=== PATIENT | female | born 1990 | race Caucasian/White ===

== ENCOUNTER 2017-04-02 16:25 | Emergency (ER) | payer MEDICAID ==
[2017-04-02 16:34] VITALS: BP 125/80; PULSE 65; RESP 18; TEMP 98.1; O2SAT 100
--- NOTE | 2017-04-02 17:17 | ED PDOC ---
HPI: Female Pain Time Seen by Provider: 04/02/17 16:53 Chief Complaint (Nursing): Female Genitourinary Chief Complaint (Provider): Vaginal bleeding History Per: Patient Additional Complaint(s): Patient is a 26 yo female, no PMH, presents to ED currently ~ 5 weeks , LMP was 02/26, with complaints of spotting that developed around 3 am. Patient denies pain. Past Medical History Reviewed: Nursing Documentation, Vital Signs Vital Signs: Last Vital Signs Temp 98.1 F 04/02/17 16:31 Pulse 65 04/02/17 16:31 Resp 18 04/02/17 16:31 BP 125/80 04/02/17 16:31 Pulse Ox 100 04/02/17 16:31 - Medical History PMH: No Chronic Diseases - Surgical History Surgical History: No Surg Hx - Family History Family History: States: No Known Family Hx - Living Arrangements Living Arrangements: With Family - Social History Current smoker - smoking cessation education provided: No Alcohol: None Drugs: Denies - Allergies Allergies/Adverse Reactions: Allergies Allergy/AdvReac Type Severity Reaction Status Date / Time No Known Allergies Allergy Verified 04/02/17 17:16 Review of Systems ROS Statement: Except As Marked, All Systems Reviewed And Found Negative Genitourinary Female: Positive for: Vaginal Bleeding Physical Exam - Reviewed Nursing Documentation Reviewed: Yes Vital Signs Reviewed: Yes - Physical Exam Appears: Positive for: Well, Non-toxic, No Acute Distress Head Exam: Positive for: ATRAUMATIC, NORMAL INSPECTION, NORMOCEPHALIC Skin: Positive for: Normal Color, Warm, DRY Eye Exam: Positive for: EOMI, Normal appearance, PERRL ENT: Positive for: Normal ENT Inspection Neck: Positive for: Normal, Painless ROM Cardiovascular/Chest: Positive for: Regular Rate, Rhythm Respiratory: Positive for: CNT, Normal Breath Sounds Gastrointestinal/Abdominal: Positive for: Normal Exam, Bowel Sounds, Soft Back: Positive for: Normal Inspection Extremity: Positive for: Normal ROM Neurologic/Psych: Positive for: Alert, Oriented - Laboratory Results Result Diagrams: 04/02/17 17:55 - ECG O2 Sat by Pulse Oximetry: 100 Medical Decision Making Medical Decision Making: Diagnostics ordered CBC resulted WNL Beta 297 Blood type O+ US pending case endorsed to AMANDA Cheney at 20:00 pending diagnostic review and re-eval Disposition - Clinical Impression Clinical Impression: Threatened - Patient ED Disposition Is Patient to be Admitted: No - Disposition Disposition: Transfer of Care ([facility] [place]) Disposition Time: 19:44 Condition: STABLE - POA Present On Arrival: None
[2017-04-02 18:01] LABS: BASO # 0.1 K/uL (0.0-0.2); BASO % 0.7 % (0.0-2.0); EOS # 0.2 K/uL (0.0-0.7); EOS % 2.6 % (0.0-4.0); HEMOGLOBIN 12.6 g/dL (12.0-16.0); LYMPH # 2.5 K/uL (1.0-4.3); LYMPH % 28.8 % (20.0-40.0); MEAN CELL VOLUME 94.2 fl (81.0-99.0); MEAN CORPUSCULAR HEMOGLOBIN 30.8 pg (27.0-31.0); MEAN CORPUSCULAR HGB CONC 32.6 g/dL (33.0-37.0); MEAN PLATELET VOLUME 8.5 fl (7.2-11.7); MONO # 0.7 K/uL (0.0-0.8); MONO % 8.5 % (0.0-10.0); NEUT # 5.1 K/uL (1.8-7.0); NEUT % 59.4 % (50.0-75.0); RBC 4.1 Mil/uL (3.80-5.20); WHITE BLOOD COUNT 8.5 K/uL (4.8-10.8)
[2017-04-02 18:51] LABS: SQUAMOUS EPITHIAL 11 /hpf (0-5); URINE BILIRUBIN NEGATIVE (NEGATIVE); URINE BLOOD MODERATE (NEGATIVE); URINE CLARITY SLIGHTY-CLOUDY (Clear); URINE COLOR YELLOW (YELLOW); URINE GLUCOSE (UA) NEG (Normal); URINE LEUKOCYTE ESTERASE NEG Leu/uL (Negative); URINE NITRATE NEGATIVE (NEGATIVE); URINE PROTEIN 30 mg/dL (NEGATIVE); URINE UROBILINOGEN 0.2-1.0 mg/dL (0.2-1.0)
--- NOTE | 2017-04-02 20:21 | ED PDOC ---
- Laboratory Results Result Diagrams: 04/02/17 17:55 Urine POC: Positive - ECG O2 Sat by Pulse Oximetry: 100 Pulse Ox Interpretation: Normal - Progress ED Course And Treament: Case was signed out remote mortgage underwriter from [employer] Worley pending US. Medical Decision Making Medical Decision Making: OB US: FINDINGS: Uterus/cervix: No intrauterine observed Normal endometrial stripe thickness measuring 4 mm. No myometrial mass. Right ovary: Unremarkable. No mass. Normal blood flow. Left ovary: Unremarkable. No mass. Normal blood flow. Free fluid: No free fluid. IMPRESSION: No intrauterine observed at this time Patient aware of above findings. She was instructed to follow up with her OB or with clinic. Disposition - Clinical Impression Clinical Impression: Early stage of - POA Present On Arrival: None - Disposition [facility]errals[facility] [[facility]] Disposition: Routine/Home Disposition Time: 21:22 Condition: STABLE Additional Instructions: Follow up in 2-3 days with women's clinic or your examination supervisor. Instructions: (ED) Results - Lab Results Lab Results: 04/02/17 04/02/17 04/02/17 18:00 17:55 17:55 WBC 8.5 RBC 4.10 Hgb 12.6 Hct 38.6 MCV 94.2 MCH 30.8 MCHC 32.6 L RDW 13.0 Plt Count 296 MPV 8.5 Neut % (Auto) 59.4 Lymph % (Auto) 28.8 Brantley % (Auto) 8.5 Eos % (Auto) 2.6 Baso % (Auto) 0.7 Neut # 5.1 Lymph # 2.5 Brantley # 0.7 Eos # 0.2 Baso # 0.1 Beta HCG, Quant Urine Color Yellow Urine Clarity Slighty-cloudy Urine pH 5.0 Ur Specific [place] 1.032 H Urine Protein 30 Urine Glucose (UA) Neg Urine Ketones Negative Urine Blood Moderate Urine Nitrate Negative Urine Bilirubin Negative Urine Urobilinogen 0.2-1.0 Ur Leukocyte Esterase Neg Urine RBC (Auto) 4 H Urine Microscopic WBC 4 Ur Squamous Epith Cells 11 H Blood Type O POSITIVE Antibody Screen Negative BBK History Checked Patient has bt 04/02/17 17:55 WBC RBC Hgb Hct MCV MCH MCHC RDW Plt Count MPV Neut % (Auto) Lymph % (Auto) Brantley % (Auto) Eos % (Auto) Baso % (Auto) Neut # Lymph # [place] # Eos # Baso # Beta HCG, Quant 297.12 Urine Color Urine Clarity Urine pH Ur Specific [place] Urine Protein Urine Glucose (UA) Urine Ketones Urine Blood Urine Nitrate Urine Bilirubin Urine Urobilinogen Ur Leukocyte Esterase Urine RBC (Auto) Urine Microscopic WBC Ur Squamous Epith Cells Blood Type Antibody Screen BBK History Checked
--- NOTE | 2017-04-03 12:41 | US ---
Indication: Bleeding Comparison: Pelvic ultrasound performed 08/01/11 Technique: Transvaginal pelvic ultrasound Findings: The uterus measures approximately 8.8 x 3.6 x 4.8 cm. Endometrium measures approximately 4 mm in diameter. No evidence of intrauterine gestational sac. Cervical length measures approximately 5 cm. The right ovary measures 3.1 x 1.9 x 1.8 cm. The left ovary measures 2.6 x 2.0 x 2.7 cm. Blood flow was demonstrated to both ovaries. Impression: No evidence of intrauterine gestational sac. If indeed the patient is based on serum beta HCG values, the sonographic findings represent either: Very early IUP; embryonic demise; ectopic gestation. Follow-up with serial quantitative serum beta HCG measurements and post OBGYN follow-up as clinically indicated, since ectopic gestation cannot be excluded based only on sonographic findings. Preliminary impression was provided by virtual radiologic.
== END 2017-04-02 21:30 | disposition home or self-care (01) ==
LOC: H.ER 16:25
DX: O20.0 Threatened abortion (principal)

== ENCOUNTER 2017-10-20 08:27 | Emergency (ER) | payer MEDICAID ==
--- NOTE | 2017-10-27 12:39 | OBHP ---
Datetime: 10/20/2017 08:45 IP Adm Impression: , intrauterine IP Admit Plan: Discharge home Admit Comment, IP Provider: 26 yo at 28.1 based on US on 06/06/2017 presents with illness. 2 days ago she had symptoms of weakness, WILLIAMSON (pressure at frontal temporal, no changes in vision) with nausea. No vomiting. Daughter had flu 1 week ago. Positive: movement Denies: VB, LOF, CTX, CP/SOB/V/dysuria PNC: Dr. Judd Gyne: denies history of sti; pap neg med hx: none famhx: none surg: denies smoking, alcohol, illicit drugs meds: pnv NKDA 26 YO IUP 28.1 -signs/symptoms of viral illness -encouraged patient to have rapid flu test done for consideration of tamiflu -f/u ultrasound is on friday -f/u with dr. Judd 11/02/2017 -ER precautions given case dw Dr. Sheree Castorena MD PGY1 Addendum by Dr. Bentley: I have evaluated the patient independently and I agree with the above. THe patient has signs/symptoms of cold, no OB complaints. @ 28.1 wks. no abnormal vital signs, pa tient tolerating PO diet, denies fever, diarrhea. Will discharge pt home, labor precautions given, F/ U in clinic Pelvic Type - PN: Adequate Extremities - PN: Normal Abdomen - PN: Normal Back - PN: Normal Breast - PN: Not Done Lungs - PN: Normal Heart - PN: Normal Thyroid - PN: Not Done Neurologic - PN: Normal HEENT - PN: Normal General - PN: Normal FHR - Baseline A Provider: 150 EGA AdmitDate IP: 28.1 Vital Signs Provider: Reviewed; Within Normal Limits IP Chief Complaint: Maternal discomfort NICHD Variability Prov Fetus A: Moderate 6-25bpm NICHD Accel Fetus A IP Provider: 15X15 FHR Category Provider Fetus A: Category I NICHD Decel Fetus A IP Provider: None Genitourinary Exam: Normal DTRs - PN: Not Done
[2017-10-27 16:38] VITALS: BP 116/67; PULSE 88; TEMP 98.6; O2SAT 98
== END 2017-10-20 09:15 | disposition home or self-care (01) ==
LOC: H.EROB2 08:27
DX: O26.93 Pregnancy related conditions, unspecified, third trimester (principal); B34.9 Viral infection, unspecified; Z3A.28 28 weeks gestation of pregnancy

== ENCOUNTER 2018-01-09 23:56 | Emergency (ER) | payer MEDICAID ==
[2018-01-10 05:33] VITALS: BP 115/66; PULSE 72
== END 2018-01-10 01:15 | disposition home or self-care (01) ==
LOC: H.EROB2 23:56
DX: O47.1 False labor at or after 37 completed weeks of gestation (principal); O26.93 Pregnancy related conditions, unspecified, third trimester; R10.2 Pelvic and perineal pain; Z3A.39 39 weeks gestation of pregnancy

== ENCOUNTER 2018-01-10 11:35 | Inpatient (IN) | payer MEDICAID ==
[2018-01-10 12:36] VITALS: BMI 27.6
[2018-01-10] MEDS ORDERED: Penicillin G Potassium 5 MU in Sodium Chloride 0.9% 50 ML IVPB ONE (12:39)
[2018-01-10] MEDS ORDERED: Oxytocin 30 units/LR 500ML 30 U/500 ML BAG IV SCH (12:45)
[2018-01-10] MEDS ORDERED: Lactated Ringer's 1,000 ML IV SCH (12:45)
[2018-01-10 13:04] LABS: BASO # 0.1 K/uL (0.0-0.2); BASO % 0.4 % (0.0-2.0); EOS # 0.1 K/uL (0.0-0.7); EOS % 1.1 % (0.0-4.0); LYMPH % 17.2 % (20.0-40.0); MEAN CELL VOLUME 94.2 fl (81.0-99.0); MEAN CORPUSCULAR HGB CONC 33.9 g/dL (33.0-37.0); MEAN PLATELET VOLUME 9.7 fl (7.2-11.7); MONO # 0.7 K/uL (0.0-0.8); MONO % 6.3 % (0.0-10.0); NEUT # 8.7 K/uL (1.8-7.0); NRBC % 0.1 % (0.0-0.0); RBC 3.74 Mil/uL (3.80-5.20); RED CELL DISTRIBUTION WIDTH 13.2 % (11.5-14.5); WHITE BLOOD COUNT 11.6 K/uL (4.8-10.8)
[2018-01-10] MEDS ORDERED: Penicillin G 5 Million Unit Vial IVPB ONE (13:16)
[2018-01-10] MEDS: Lactated Ringer's 1,000 ML IV SCH ×2 (13:20→13:24)
--- NOTE | 2018-01-10 13:51 | OBHP ---
Datetime: 01/10/2018 12:51 IP Adm Impression: Term, intrauterine IP Admit Plan: Admit to unit Admit Comment, IP Provider: This is 27 YO @39.6wks IUP presents to [facility] for ctx. Pt states t hat her ctx started yesterday and since onset intensity getting stronger and stronger. Endorsing good FM, no VB, no LOF. MD: [facility] ObHx: 3 full term NVD, 2 SAB last 2016 @ 7 weeks GYNHx: hx of STI in past PMH: denies SurgH: denies FH: HTN in mother, throat CA in father Meds: PNV and iron Allergies: NKDA PE GEN: NAD Cardio: S1S2 no additional heart sounds Resp: clear breath sounds b/l Abdomen: Gravid, NT, BS+ Neuro: AAO x 3 Ext: no edema noted, NT FM: 130 catagory I Cervx: /-2 A/P: 27 YO @39.6wks IUP is evaluated for labor. GBS pos, HIV neg, RPR neg. - Admit to L_D - observe and reevaluate - GBS+, Penicillin - Follow up labs - FHT/NST/VS - Reevaluate Case discussed with Dr. Tam --- Malorie Nelson, PGY-1 OB Hospitalist Addendum: Pt seen by me. Agree w/ above. 27 yo at 39+6 wks in labor. VE done by R.N. Pt admitted to L_D. FHT reasuring. GBS positive. Penicillin for GBS prohylaxis. Pt d eires an epidural. (ES) Pelvic Type - PN: Adequate Extremities - PN: Normal Abdomen - PN: Normal Back - PN: Normal Lungs - PN: Normal Heart - PN: Normal Thyroid - PN: Normal Neurologic - PN: Normal HEENT - PN: Normal General - PN: Normal FHR - Baseline A Provider: 130 EGA AdmitDate IP: 39.6 Vital Signs Provider: Reviewed; Within Normal Limits IP Chief Complaint: Uterine contractions; Maternal discomfort; evaluation NICHD Variability Prov Fetus A: Moderate 6-25bpm NICHD Accel Fetus A IP Provider: 15X15 FHR Category Provider Fetus A: Category I NICHD Decel Fetus A IP Provider: None Dilatation, Provider: 5 Effacement, Provider: 70 Station, Provider: -2 Datetime: 01/10/2018 12:46 Comments, ACOG Physical Exam: GBS + HIV/RPR negative Genitourinary Exam: Normal Datetime: 01/10/2018 00:44 Breast - PN: Not Done Membranes, Provider: Intact DTRs - PN: Not Done
[2018-01-10] MEDS ORDERED: Oxycodone/Acetaminophen 5/325 mg Tab PO PRN ×4 (17:25→20:39)
--- NOTE | 2018-01-10 17:40 | OBDS ---
DELIVERY PERSONNEL Delivery Doctor: Fox Tam MD Glost Tile Shader: Rebecca Staton RN MATERNAL INFORMATION Delivery Anesthesia: None Medications in Delivery: pitocin Estimated Blood Loss (ml): 100 Placenta Cultured: No Maternal Complications: None RN Comments: Live boy @1702. Infant care given. Skin 2skin done at delivery. Placenta delivered bree arently intact. Iv with pitocin infusing well. Extra digit noted on right hand and seen by Dr Tam. Pt tolerated procedure well. Provider Comments: Pt progressed to complete and pushed to deliver a viable male through kaden r fluid over intact perineum at 17:02pm. Weight 3215gm, 7#1.4/ 9/9 . Right Anterior shoulder wa s delivered first in a controlled manner after head followed by posterior arm and body. was bu lb suctioned nasopharygeally and started crying spontaneously. Baby was placed on mother's abdomen fo r Skin to skin contact. Umbilical cord was doubly clamped cut by father as instructed. Cord blod was collected. Placenta was delivered spontaneously intact w/ a 3vc at 5:12 pm. No tears noted. Rectu m intact. Pt and baby tolerated the procedure well. EBL 100cc. Patient and baby remained stable in the delivery room OB Attending: Dr. Tam --- Malorie Nelson, PGY-1 OB Hospitalist Addendum: I was present for this delivery. (ES) LABOR SUMMARY EDC: 01/11/2018 00:00 No. Babies in Womb: 1 Attempted: No LABOR INFORMATION Reason for Induction: Not Applicable Onset of Labor: 01/10/2018 06:30 Group B Beta Strep: Positive Steroids Given: None Reason Steroids Not Administered: Not Applicable MEMBRANES Membranes Rupture Method: Artificial Rupture of Membranes: 01/10/2018 15:57 Amniotic Fluid Color: Clear Amniotic Fluid Amount: Small Amniotic Fluid Odor: Normal VAGINAL DELIVERY Episiotomy: None Laceration Extension: N/A Laceration Type: None INFANT INFORMATION BABY A Gestational Age at Delivery: 39+6 IDENTIFICATION/MEDS BABY A ID Band Number: [id number] ID Band Location: Left Leg; Left Arm
--- NOTE | 2018-01-11 08:52 | OBPPN ---
Datetime: 01/11/2018 08:21 PP Pain Prov: Within normal limits PP Nausea Prov: Denies PP Flatus Prov: Yes PP BM Prov: Yes PP Heart Prov: Normal PP Lungs Prov: Normal PP Abdomen/Uterus Prov: Normal PP Lochia Prov: Normal PP CVA Tenderness Prov: Normal PP Extremities Prov: Normal PP Impression Prov: Normal progression PP Plan Prov: Continue present management PP Progress Note Prov: PPD 1 27 yo now on PPD 1 seen and examined at bedside this morning. No overnight events. Reports pain is controlled with pain medications. Pt reports +flatus/+BM. Voiding freely w/o difficulty. Am bulating well w/o dizziness. Lochia is similar to menses volume. Pt is formula feeding the baby. Den ies nausea, vomiting, fever, chills, chest pain or calf pain. Physical Exam: General: A_O, resting comfortably in bed, NAD HEENT: oral mucosa moist. Lungs: CTA B/L, no wheezing, rhonchi or rales CVS: RRR, S1, S2 ABD: ND, +BS, firm fundus @ umbilical level. Soft, appropriate TTP. EXT: no edema, negative Korin's sign, Neuro/psych: AAOX3. Assessment: 27 yo now doing well on PPD 1 Plan: OOB w/ caution Regular diet Ibuprofen and percocet for pain management Senokot S for constipation consults for Encourage and ambulation Anticipate discharge tomorrow Case d/w on-call OB hospitalist Sultan Rader, pgy-1 The patient was seen with the resident I agree with the note Vital Signs Provider PP: Reviewed
[2018-01-11 09:28] LABS: BASO # 0.1 K/uL (0.0-0.2); BASO % 0.4 % (0.0-2.0); EOS # 0.2 K/uL (0.0-0.7); EOS % 1.4 % (0.0-4.0); LYMPH # 2.2 K/uL (1.0-4.3); LYMPH % 15.5 % (20.0-40.0); MEAN CELL VOLUME 95.6 fl (81.0-99.0); MEAN CORPUSCULAR HEMOGLOBIN 32.1 pg (27.0-31.0); MEAN CORPUSCULAR HGB CONC 33.6 g/dL (33.0-37.0); MEAN PLATELET VOLUME 9.7 fl (7.2-11.7); MONO # 0.9 K/uL (0.0-0.8); MONO % 6.3 % (0.0-10.0); NEUT # 10.8 K/uL (1.8-7.0); NEUT % 76.4 % (50.0-75.0); RBC 3.42 Mil/uL (3.80-5.20); RED CELL DISTRIBUTION WIDTH 13.1 % (11.5-14.5); WHITE BLOOD COUNT 14.2 K/uL (4.8-10.8)
[2018-01-11] MEDS ORDERED: Docusate-Senna 50 mg-8.6 mg Tab PO SCH (22:00)
--- NOTE | 2018-01-12 10:16 | OBPPN ---
Datetime: 01/12/2018 06:03 PP Pain Prov: Within normal limits PP Nausea Prov: Denies PP Flatus Prov: Yes PP BM Prov: Yes PP Heart Prov: Normal PP Lungs Prov: Normal PP Abdomen/Uterus Prov: Normal PP Lochia Prov: Normal PP CVA Tenderness Prov: Normal PP Extremities Prov: Normal PP Impression Prov: Normal progression PP Plan Prov: Continue present management; Discharge PP Progress Note Prov: S: 27 YO , PPD2, s/p NVD. Pt is seen and examined by bedside this AM. No acute overnight events. Pt is endorsing abdominal pain is well controlled. Ambulating, Bleeding has i mproved since delivery. Tolerating PO diet. + BM. Denies chest pain, dyspnea, n/v, fever/chills, diar karina, nausea/vomiting, and calf pain. O: VS: wnl, afebrile GEN: Awake, alert and baby girl by bedside. Sleepy HEENT: EOMI, moist mucosa. LUNGS: CTA B/L, no wheezing, rhonci, or rales CVS: RRR, S1, S2 no murmurs ABD: ND, +BS, soft abdomen, firm fundus, below umbilicus. EXT: No edema, neg calf tenderness NEURO/PSYCHI: AAOx3, no grossly focal deficit, preserved affect and mood. Assessment/Plan: : 27 YO , PPD2, s/p NVD, gave to a baby boy. Pt remains afebrile, florence ating pain with medication, good PO intake and urinating without any difficulties. Doing well on PPD2 . -C/w regular diet as tolerated. -OOB with caution SCDs for DVT prophylaxis -Ibuprofen 600 mg/Percocet for pain prn -C/w Colace 100mg PO BID PRN -Encourage and early ambulation. Malorie Nelson, PGY-[address] Bentley: Patient evaluated independently and I agree with the above IP PP Procedures: None Vital Signs Provider PP: Reviewed; Within Normal Limits
--- NOTE | 2018-01-12 10:16 | OBDCSUM ---
Datetime: 01/12/2018 06:04 Discharged to, Provider: Home Follow up at, Provider: [facility] Disch Instr Activity: Normal activity Disch Instr Diet: Regular Discharge Instructions, Provider: Routine instructions given Discharge Diagnosis, Provider: Term Delivered Discharge Time: 01/12/2018 06:30 Follow up in weeks, Provider: As instructed Disch Referrals: None Contraception discussed, Prov: Yes Discharge Comment, Provider: 27 YO , PPD2, s/p NVD on 01/10/18, gave to a baby boy @39.6 wk s IUP . of 9/9 and weight of 3215g. No complications during the post- period. Pt is florence ating PO diet, pain is well controlled, and ambulating without difficulties, + BM. PPD2. Discharge Instructions: 1.Encourage and ambulation 2.PNV 1 tab po daily 3.Ibuprofen for mild-mod pain and colace for constipation. 4.ER precautions: If excessive bleeding or fever without relief from medication, go to ED 5.F/U PP visit in 4-6 weeks and follow up in 2-3 days for baby. Malorie Nelson, PGY I
[2018-01-12 19:15] VITALS: BP 119/66; PULSE 62; RESP 20; TEMP 98.2; O2SAT 100
== END 2018-01-12 14:05 | disposition home or self-care (01) | DRG 373 ==
LOC: H.EROB2 11:35 → H.L&D 12:36 → H.OB/GYN 20:20
PROVIDERS: ADMIT Obstetrics & Gynecology; ATTEND Obstetrics & Gynecology
PROC: 10E0XZZ Delivery of Products of Conception, External Approach (ICD-10-PCS; principal; 2018-01-10)
PROC: 10907ZC Drainage of Amniotic Fluid, Therapeutic from Products of Conception, Via Natural or Artificial Opening (ICD-10-PCS; 2018-01-10)
PROC: 4A1HXCZ Monitoring of Products of Conception, Cardiac Rate, External Approach (ICD-10-PCS; 2018-01-10)
DX: O99.824 Streptococcus B carrier state complicating childbirth (principal); Z37.0 Single live birth; Z3A.39 39 weeks gestation of pregnancy

== ENCOUNTER 2018-09-03 07:48 | Emergency (ER) | payer MEDICAID ==
[2018-09-03 07:53] VITALS: PULSE 80; RESP 20; TEMP 97; O2SAT 100
[2018-09-03 07:54] VITALS: BMI 23.5
[2018-09-03] MEDS ORDERED: Sodium Chloride 0.9% 1,000 ML IV STA (09:10)
--- NOTE | 2018-09-03 09:37 | ED PDOC ---
HPI: General Adult Time Seen by Provider: 09/03/18 08:21 Chief Complaint (Nursing): Headache Chief Complaint (Provider): Headache History Per: Patient History/Exam Limitations: no limitations Onset/Duration Of Symptoms: Days (x 1) Current Symptoms Are (Timing): Still Present Additional Complaint(s): 27 year old female with no significant medical history presents to the ED with dizziness since she woke up this morning. Patient reports that , she immediately felt lightheaded, the room started spinning and that she felt much better after sitting down. For the last few days, she has had a headache associated with nausea. Patient states that, even in the freezing temperatures, she sweats when walking her child to school in the last few days. She has been eating and drinking normally. Denies vomiting. PMD: none provided Past Medical History Reviewed: Historical Data, Nursing Documentation, Vital Signs Vital Signs: Last Vital Signs Temp 97 F L 09/03/18 07:52 Pulse 80 09/03/18 07:52 Resp 20 09/03/18 07:52 BP 131/77 09/03/18 07:52 Pulse Ox 100 09/03/18 07:52 - Medical History PMH: No Chronic Diseases Denies: Depression, Diabetes, HTN - Surgical History Surgical History: No Surg Hx - Family History Family History: States: Unknown Family Hx - Home Medications Home Medications: Ambulatory Orders Medication Instructions Recorded Multivit/Folic Acid/I 1 tab PO DAILY 01/10/18 [] Docusate [Colace] 100 mg PO BID #14 cap 01/12/18 Ibuprofen [Motrin Tab] 600 mg PO Q6 PRN #20 tab 01/12/18 - Allergies Allergies/Adverse Reactions: Allergies Allergy/AdvReac Type Severity Reaction Status Date / Time No Known Allergies Allergy Verified 09/03/18 08:07 Review of Systems ROS Statement: Except As Marked, All Systems Reviewed And Found Negative Constitutional: Positive for: Sweats. Negative for: Fever, Chills Gastrointestinal: Positive for: Nausea. Negative for: Vomiting, Abdominal Pain, Diarrhea Neurological: Positive for: Headache, Dizziness Physical Exam - Reviewed Nursing Documentation Reviewed: Yes Vital Signs Reviewed: Yes - Physical Exam Appears: Positive for: Non-toxic, No Acute Distress Head Exam: Positive for: ATRAUMATIC, NORMAL INSPECTION, NORMOCEPHALIC Skin: Positive for: Normal Color, Warm, Dry Eye Exam: Positive for: EOMI, Normal appearance, PERRL Neck: Positive for: Normal, Painless ROM, Supple Cardiovascular/Chest: Positive for: Regular Rate, Rhythm. Negative for: Murmur Respiratory: Positive for: Normal Breath Sounds. Negative for: Respiratory Dis tress Gastrointestinal/Abdominal: Positive for: Normal Exam, Soft. Negative for: Tenderness Extremity: Positive for: Normal ROM. Negative for: Deformity Neurologic/Psych: Positive for: Alert, Oriented. Negative for: Motor/Sensory Deficits - Laboratory Results Result Diagrams: 09/03/18 09:28 09/03/18 09:28 - ECG O2 Sat by Pulse Oximetry: 100 (RA) Pulse Ox Interpretation: Normal Medical Decision Making Medical Decision Makin Impression: dizziness Initial Plan: --CMP --CBC --NS IV --Urine preg --Urine cx --UA 1208 Labs and urine reveal no significant findings. Upon provider evaluation patient is medically stable, and requires no further treatment in the ED at this time. Patient will be discharged home. Scribe Attestation: Documented by Silvia Ag acting as a scribe for Sonia Davies MD Provider Scribe Attestation: All medical record entries made by the Scribe were at my direction and personal ly dictated by me. I have reviewed the chart and agree that the record accurately reflects my personal performance of the history, physical exam, medical decision making, and the department course for this patient. I have also personally directed, reviewed, and agree with the discharge instructions and disposition. Disposition - Clinical Impression Clinical Impression: Whole body pain - Patient ED Disposition Is Patient to be Admitted: No - Disposition Disposition Time: 12:07 Condition: IMPROVED Additional Instructions: follow up with your primary doctor in 1-2 days return to the ED with any worsening or concerning symptoms Instructions: Acute Pain, Adult (DC) Forms: [employer] (Czech)
[2018-09-03 09:49] LABS: SQUAMOUS EPITHIAL 4 /hpf (0-5); URINE BACTERIA RARE (<OCC); URINE BILIRUBIN NEGATIVE (NEGATIVE); URINE BLOOD NEGATIVE (NEGATIVE); URINE CLARITY SLIGHTY-CLOUDY (Clear); URINE COLOR YELLOW (YELLOW); URINE GLUCOSE (UA) NEG (NEGATIVE); URINE LEUKOCYTE ESTERASE NEG Leu/uL (Negative); URINE PROTEIN NEGATIVE (NEGATIVE); URINE UROBILINOGEN 0.2-1.0 mg/dL (0.2-1.0)
[2018-09-03 09:59] LABS: ALB/GLOB RATIO 1.2 (1.0-2.1); ALBUMIN 4.4 g/dL (3.5-5.0); ALT/SGPT 36 U/L (9-52); AST/SGOT 33 U/L (14-36); BLOOD UREA NITROGEN 20 mg/dl (7-17); CALCIUM 9.8 mg/dL (8.4-10.2); GFR NON-AFRICAN AMERICAN > 60
[2018-09-03 10:16] LABS: BASO % 0.4 % (0.0-2.0); EOS # 0.4 K/uL (0.0-0.7); EOS % 5.5 % (0.0-4.0); HEMOGLOBIN 12.6 g/dL (12.0-16.0); LYMPH # 1.9 K/uL (1.0-4.3); LYMPH % 28.3 % (20.0-40.0); MEAN CELL VOLUME 95.3 fl (81.0-99.0); MEAN CORPUSCULAR HEMOGLOBIN 31.1 pg (27.0-31.0); MEAN CORPUSCULAR HGB CONC 32.6 g/dL (33.0-37.0); MEAN PLATELET VOLUME 8.7 fl (7.2-11.7); MONO # 0.4 K/uL (0.0-0.8); MONO % 6.2 % (0.0-10.0); NEUT % 59.6 % (50.0-75.0); NRBC % 0.3 % (0.0-0.0); RBC 4.05 Mil/uL (3.80-5.20); RED CELL DISTRIBUTION WIDTH 12.9 % (11.5-14.5); WHITE BLOOD COUNT 6.7 K/uL (4.8-10.8)
[2018-09-03 12:29] VITALS: BP 129/73
== END 2018-09-03 12:30 | disposition home or self-care (01) ==
LOC: H.ER 07:48
DX: M79.10 Myalgia, unspecified site (principal); R51 Headache
CPT/HCPCS: 80053; 81003; 81025; 85025; 87086; 96360; 99285; J1885; J7030